=== PATIENT | female | born 1995 | race Caucasian/White ===

== ENCOUNTER 2023-10-03 18:02 | Emergency (ER) | payer SELFPAY ==
[~2023-10-03] VITALS: Ht 167.6 cm; Wt 81.6 kg
[2023-10-03 18:25] VITALS: O2SAT 97
== END 2023-10-03 18:31 | disposition left against medical advice (07) ==
LOC: ER 18:06
DX: R10.9 Unspecified abdominal pain (principal); Z53.21 Procedure and treatment not carried out due to patient leaving prior to being seen by health care provider
CPT/HCPCS: A4606; A4663